=== PATIENT | female | born 1960 | race Caucasian/White ===

== ENCOUNTER 2024-07-17 23:41 | Emergency (ER) | payer SELFPAY ==
[2024-07-17 23:57] VITALS: BP 144/80
[2024-07-18 00:40] LABS: % Basophils 1.1 % (0-2); % Eosinophils 1.7 % (0-6); % Immature Granulocytes 0.4 % (0-0.5); % Lymphocytes 23.9 % (20.5-51.1); % Monocytes 7.9 % (1.7-9.3); Absolute Basophils 0.1 10^3/uL (0-0.2); Absolute Eosinophils 0.1 10^3/uL (0-0.7); Absolute Lymphocytes 1.3 10^3/uL (1.2-3.4); Absolute Monocytes 0.4 10^3/uL (0.1-0.6); Absolute Neutrophils 3.5 10^3/uL (1.4-6.5); Hematocrit 41.8 % (37.0-47.0); Hemoglobin 13.7 g/dL (12.0-16.0); Mean Corp Hgb Conc. 32.8 g/dL (33.0-37.0); Mean Corpuscular Hgb 27.9 pg (27.0-31.0); Mean Corpuscular Volume 85.1 fL (81.0-99.0); Mean Platelet Volume 9.9 fL (7.4-10.4); Nucleated Red Blood Cells % 0 %; Platelet Count 265 10^3/uL (130-400); Red Blood Cell Count 4.91 10^6/uL (4.20-5.40); White Blood Cell Count 5.3 10^3/uL (4.8-10.8)
[2024-07-18 00:48] LABS: ALT (SGPT) 15 U/L (0-35); AST (SGOT) 25 U/L (14-36); Albumin 4.9 g/dl (3.5-5.0); Alkaline Phosphatase 153 U/L (38-126); Blood Urea Nitrogen 28 mg/dl (7-17); Calcium 9.7 mg/dl (8.4-10.2); Carbon Dioxide 29 mmol/L (22-30); Chloride 105 mmol/L (98-107); Glucose 119 mg/dl (70-99); Potassium 4.3 mmol/L (3.5-5.1); Sodium 142 mmol/L (135-145); Total Bilirubin 0.5 mg/dl (0.2-1.3); Total Protein 7.8 g/dl (6.3-8.2); eGFR > 60.00
[2024-07-18 01:18] LABS: TSH 4.55 uIU/ml (0.47-4.68)
[2024-07-18 04:00] VITALS: BP 164/94
[2024-07-18 04:01] VITALS: BMI 21.3
[2024-07-18 05:00] VITALS: BP 157/88
[2024-07-18 06:00] VITALS: BP 122/65
--- NOTE | 2024-07-18 06:24 | ED.GENMED ---
History of Present Illness
General
Chief Complaint: Heart Rate Problem
Source: patient
Exam Limitations: none
Time Seen by Provider: 07/18/24 06:23
Nursing documentation reviewed up to this point in time: agreed with
History of Present Illness
History of Present Illness:
63-year-old female presents to the emergency department due to palpitations and rapid heart rate that she has had for the past month. She states it is worse at night. No aggravating or alleviating factors. She denies chest pain, shortness of
breath or fevers. No vomiting or diarrhea.
Past History
Past History
ED Past Medical History: Other (Reactive hypoglycemia )
ED Past Surgical History:
Social History
Tobacco: Non-smoker
Alcohol: None
Drug: None
Personal:
Living: with family
Family History
Family History: Negative Diabetes, Hypertension, Early CAD, Asthma or Cancer
Review of Systems
Review of Systems
Allergies reviewed?: Yes
All Other Systems: Not applicable
Constitutional: Reports no symptoms
EENT: Reports no symptoms
Respiratory: Reports no symptoms
Cardiac: Reports palpitations
ABD/GI: Reports no symptoms
: Reports frequency
Musculoskeletal: Reports no symptoms
Skin: Reports no symptoms
Neurological: Reports no symptoms
Endocrine: Reports no symptoms
Hematologic/Lymphatic: Reports no symptoms
Psychiatric: Reports no symptoms
Phy Exam
Physical Exam
Physical Exam:
Physical Exam
General: no apparent distress, not acutely ill
Neck: supple. no meningeal signs. normal posterior pharynx
Heart: s1/s2 regular rate and rhythm, no murmur. equal radial
pulses.
HEENT: Pupils equal round reactive to light, EOMI
Lungs: no acute respiratory distress. clear bilaterally
Abdomen: normal bowel sounds. not tender. no CVAT
Neuro: alert and oriented. no focal neurological deficits cranial nerves II through XII intact
Skin: no rash
Psychiatric: well kept. interactive and cooperative
Extremities: no edema. no calf tenderness. negative homans. good distal pulses
Course
Orders/Labs/Results
Orders:
Orders
07/18/24 00:00
Electrocardiogram (*1) Urgent
Reason for Study: Tachycardia
07/18/24 00:01
EKG- Treatment ONCE
07/18/24 00:26
Complete Blood Count/With Diff Urgent
Comprehensive Metabolic Panel Urgent
TSH Urgent
07/18/24 06:59
Urinalysis Reflex To Culture Urgent
Date Specimen was Collected: 07/18/24
Time Specimen was Collected: 06:57
Abnormal Lab Results
07/18/24
00:26
MCHC 32.8 L g/dL
(33.0-37.0)
BUN 28 H mg/dl
(7-17)
Glucose 119 H mg/dl
(70-99)
Alkaline Phosphatase 153 H U/L
(38-126)
07/18/24 00:26
07/18/24 00:26
Vital Signs
Initial and Last Documented VS:
Initial Vital Signs
Temp Pulse Resp BP Pulse Ox
97.4 F 76 18 144/80 98
07/17/24 23:57 07/17/24 23:57 07/17/24 23:57 07/17/24 23:57 07/17/24 23:57
Last Documented Vital Signs
Temp Pulse Resp BP Pulse Ox
97.4 F 64 16 101/64 98
07/17/24 23:57 07/18/24 08:00 07/18/24 08:04 07/18/24 08:00 07/18/24 08:00
MDM/Problems Addressed
Differential Diagnosis Includes:
Dysrhythmia, hypovolemia, UTI
MDM/Problems Addressed:
63-year-old female with heart palpitations, no signs of dysrhythmia. UA normal. Stable for discharge.
*Pulse Oximetry
Patient hypoxic: no
*EKG
Interpreted by ED Provider?: Yes
EKG Intrepretation Date: 07/18/24
EKG Intrepretation Time: 00:09
Interpretation: abnormal
Comparison EKG: changes noted
Heart Rate: 83
Rate: normal
Rhythm: sinus and sinus arrhythmia
[place]: normal axis
Interval: normal interval
QRS Pattern: right bundle branch block
Ischemia: no ischemia
*[employer] Interpretation
Rate: normal
Interpretation: normal
Heart Rate: 68
Rhythm: sinus
*Critical Care Note
Total Time (30-74mins, 75-104mins- exclusive of procedures): Not Applicable
Data Reviewed
Further Testing Considered But Not Given:
Chest x-ray not indicated
Patient Management
Social determinants of health affecting care: Living situation and Strong social support
Escalation/DeEscalation of care consider admission/obs:
Admit not indicated
ED Attending Note
-
Portions of this chart may have been created with voice recognition software.� Occasional wrong word or��sound alike� substitutions may have occurred due to the inherent limitations of voice recognition software.
Discharge Plan
Departure
Patient Disposition: Home (Routine Discharge)
Date of Disposition: 07/18/24
Time of Disposition: 09:03
Patient with high blood pressure during this ER visit?: No
Condition: Good
Discharge Problem:
Palpitations
Instructions: Palpitations (DC)
Prescriptions:
No Action
No Current Medications
Referrals:
NONE,* [Family Provider] -
Activity Restrictions/Additional Instructions:
Patient reported concerns. Follow-up primary care in 1 week.
Interventions
Interventions:
*Risk Screen - Suicide Last Done: 07/17/24 23:57
*General Assessment Last Done: 07/18/24 04:01
*Neglect/Abuse Screening Last Done: 07/17/24 23:57
ED- Fall Risk Assessment Last Done: 07/18/24 04:01
*ED COVID-19 Vaccine History Last Done: 07/18/24 04:01
ED- Cardiac Assessment Last Done: 07/18/24 04:01
ED- Pulmonary Assessment Last Done: 07/18/24 04:01
Discharge Date and Time
Print Language: [id number]
[2024-07-18 07:00] VITALS: BP 113/68
[2024-07-18 08:00] VITALS: BP 101/64
[2024-07-18 08:30] LABS: Urine Albumin Negative (Neg - Trace); Urine Bilirubin Negative (Negative); Urine Character Clear (Clear); Urine Color Yellow; Urine Glucose Negative (Negative); Urine Ketone Negative (Negative); Urine Leukocyte Negative (Negative); Urine Nitrite Negative (Negative); Urine Occult Blood Negative (Negative); Urine Urobilinogen Negative (Neg - 1+); Urine pH 6.5 (5.0-9.0)
[2024-07-18 09:00] VITALS: BP 108/71
== END 2024-07-18 09:27 | disposition home or self-care (01) ==
LOC: EMR 23:41
PROVIDERS: Emergency Medicine; EMERGENCY PHYSICIAN Emergency Medicine
DX: R00.2 Palpitations (principal)
CPT/HCPCS: 99284; 80053; 81003; 84443; 85025; 93005